=== PATIENT | male | born 1990 | race Caucasian/White ===

== ENCOUNTER 2018-01-22 12:33 | Emergency (ER) | payer OTHER ==
[~2018-01-22] VITALS: Ht 180.3 cm; Wt 90.7 kg
[~2018-01-22 12:33] MED LIST: Cleocin HCl150 MG PO; NAPR500 PO; RXOXYACE PO
[2018-01-22] MEDS ORDERED: PERIDEX15 ML MM (13:08)
[2018-01-22] MEDS ORDERED: Ultram50 MG PO (13:08)
[2018-01-22] MEDS ORDERED: Amoxicillin500 MG PO (13:08)
== END 2018-01-22 13:20 | disposition home or self-care (01) ==
LOC: ER 12:33
DX: K04.7 Periapical abscess without sinus (principal); Z88.5 Allergy status to narcotic agent; Z88.8 Allergy status to other drugs, medicaments and biological substances; Z79.899 Other long term (current) drug therapy; Z79.2 Long term (current) use of antibiotics
CPT/HCPCS: 99283